=== PATIENT | male | born 1955 | race Caucasian/White ===

== ENCOUNTER → 2016-09-24 | Outpatient (CLI) | payer OTHER ==
[~2016-09-24] VITALS: Ht 172.7 cm; Wt 81.6 kg
[~2016-09-24] MED LIST: ASPIR 8181 M1 PO; LIPITOR10 MG PO; NORVASC5 MG PO
== END | disposition home or self-care (01) ==
LOC: AMB 06:40
PROC: 0DJD8ZZ Inspection of Lower Intestinal Tract, Via Natural or Artificial Opening Endoscopic (ICD-10-PCS; principal; 2016-09-24)
DX: Z12.11 Encounter for screening for malignant neoplasm of colon (principal); K57.30 Diverticulosis of large intestine without perforation or abscess without bleeding; K64.8 Other hemorrhoids; I10 Essential (primary) hypertension; E78.5 Hyperlipidemia, unspecified
CPT/HCPCS: J2250